=== PATIENT | female | born 1955 | race Caucasian/White ===

== ENCOUNTER 2017-03-05 10:14 | Emergency (ER) | payer OTHER ==
[~2017-03-05] VITALS: Ht 167.6 cm; Wt 86.2 kg
[2017-03-05 10:23] VITALS: BP 144/96; PULSE 94; RESP 18; TEMP 98.5; O2SAT 95
[2017-03-05] MEDS ORDERED: ASPI81CH CHEW (10:47)
[2017-03-05] MEDS ORDERED: METF500T PO (10:47)
[2017-03-05] MEDS ORDERED: CHOL1TAB42 PO (10:47)
[2017-03-05] MEDS ORDERED: LEVO50TA4 PO (10:47)
--- NOTE | 2017-03-05 10:57 | PD ---
HPI Chief Complaint: Abdominal Pain Time Seen by Provider: 10:46 Travel History International Travel<30 days: No Contact w/Intl Traveler<30days: No Traveled to known affect area: No History of Present Illness HPI This 61-year-old female is complaining of epigastric pain. Says the pain started on [place]. The pain started after sneezing. The pain is worse when she stands. His been no vomiting or diarrhea. It seems to be worse with eating. She has had a cholecystectomy in the past. The time that she had that done and she was told she had a hiatal hernia. She did have endoscopy done couple of years ago and was told she had a narrow esophagus. She takes metformin for diabetes. PFSH Past Medical History Diabetes: Yes Patient Takes Glucophage: Yes Gastrointestinal Disorders: Yes (FATTY LIVER) Hiatal Hernia: Yes Hypertension: Yes Influenza Vaccination: No ?: Not Past Surgical History Section: Yes Cholecystectomy: Yes Other Surgery: Yes (THYROIDECTOMY) Social History Alcohol Use: No Tobacco Use: No Substance Use: No Allergies-Medications (Allergen,Severity, Reaction): Coded Allergies: Erythromycin (Verified Adverse Reaction, Intermediate, GI UPSET, 03/05/17) Reported Meds & Prescriptions Reported Meds & Active Scripts Active Reported Vitamin D-3 (Cholecalciferol) 2,000 Unit Tab 1 Tab PO DAILY Levothyroxine (Levothyroxine Sodium) 50 Mcg Tab 50 Mcg PO DAILY Metformin (Metformin HCl) 500 Mg Tab 1,000 Mg PO BIDPC With meals Aspirin 81 Mg Chew 81 Mg CHEW DAILY Review of Systems General / Constitutional: No: Fever, Chills Eyes: No: Diploplia, Blurred Vision HENT: No: Headaches, Vertigo Cardiovascular: No: Chest Pain or Discomfort, Palpitations Respiratory: No: Cough, Shortness of Breath Gastrointestinal: Positive: Abdominal Pain, No: Vomiting, Diarrhea Genitourinary: No: Urgency, Frequency Physical Exam Narrative GENERAL: Well-developed female SKIN: Focused skin assessment warm/dry. HEAD: Atraumatic. Normocephalic. EYES: Pupils equal and round. No scleral icterus. No injection or drainage. ENT: No nasal bleeding or discharge. Mucous membranes pink and moist. NECK: Trachea midline. No JVD. CARDIOVASCULAR: Regular rate and rhythm. No murmur appreciated. RESPIRATORY: No accessory muscle use. Clear to auscultation. Breath sounds equal bilaterally. GASTROINTESTINAL: Abdomen soft, there is epigastric tenderness. There is a large right upper quadrant scar from cholecystectomy. When she coughs there is some bulging epigastric area. She says the pain is worse on standing. I did stand the patient when she stands it seems to be a slight bulge. MUSCULOSKELETAL: No obvious deformities. No clubbing. No cyanosis. No edema. NEUROLOGICAL: Awake and alert. No obvious cranial nerve deficits. Motor grossly within normal limits. Normal speech. PSYCHIATRIC: Appropriate mood and affect; insight and judgment normal. Data Data Last Documented VS Vital Signs Date Time Temp Pulse Resp B/P Pulse Ox O2 Delivery O2 Flow Rate FiO2 03/05/17 12:20 79 16 148/68 97 Room Air 03/05/17 10:23 98.5 Orders Electrocardiogram (03/05/17 10:52) Complete Blood Count With Diff (03/05/17 10:52) Comprehensive Metabolic Panel (03/05/17 10:52) Lipase (03/05/17 10:52) Al-Mag Hy-Si 40-40-4 Mg/Ml Liq (Mag-Al P (03/05/17 11:00) Lidocaine 2% Viscous (Xylocaine 2% Visco (03/05/17 11:00) Labs Laboratory Tests Test 03/05/17 11:00 White Blood Count 11.1 TH/MM3 Red Blood Count 4.45 MIL/MM3 Hemoglobin 12.5 GM/DL Hematocrit 37.7 % Mean Corpuscular Volume 84.8 FL Mean Corpuscular Hemoglobin 28.1 PG Mean Corpuscular Hemoglobin 33.2 % Concent Red Cell Distribution Width 11.9 % Platelet Count 221 TH/MM3 Mean Platelet Volume 7.3 FL Neutrophils (%) (Auto) 72.9 % Lymphocytes (%) (Auto) 17.5 % Monocytes (%) (Auto) 7.5 % Eosinophils (%) (Auto) 1.6 % Basophils (%) (Auto) 0.5 % Neutrophils # (Auto) 8.0 TH/MM3 Lymphocytes # (Auto) 2.0 TH/MM3 Monocytes # (Auto) 0.8 TH/MM3 Eosinophils # (Auto) 0.2 TH/MM3 Basophils # (Auto) 0.1 TH/MM3 CBC Comment DIFF FINAL Differential Comment Sodium Level 140 MEQ/L Potassium Level 3.9 MEQ/L Chloride Level 102 MEQ/L Carbon Dioxide Level 31.4 MEQ/L Anion Gap 7 MEQ/L Blood Urea Nitrogen 12 MG/DL Creatinine 0.89 MG/DL Estimat Glomerular Filtration 64 ML/MIN Rate Random Glucose 133 MG/DL Calcium Level 9.3 MG/DL Total Bilirubin 1.2 MG/DL Aspartate Amino Transf 27 U/L (AST/SGOT) Alanine Aminotransferase 29 U/L (ALT/SGPT) Alkaline Phosphatase 99 U/L Total Protein 8.7 GM/DL Albumin 3.7 GM/DL Lipase 139 U/L [facility] Medical Decision Making Medical Screen Exam Complete: Yes Emergency Medical Condition: Yes Medical Record Reviewed: Yes Differential Diagnosis Differential includes gastritis, ventral hernia, muscular tear Narrative Course Ascites pain is worse with standing and I am suspicious that she may have torn some muscles in the anterior abdominal wall and may even be developing a ventral hernia. There is no bulge palpable when she lays and I don't think this would be visible on CT scanning. She'll be released but I recommended to her that she follow up with surgery pain persists. Diagnosis Primary Impression: Abdominal muscle pain Additional Impression: possible ventral herniA Additional Instructions: Follow-up with general surgeon if pain persists Disposition: 01 DISCHARGE HOME Condition: Stable Iggy Sunshine MD Mar 05, 2017 10:57
[2017-03-05] MEDS ORDERED: LIDOCAINE VISCOUS 2% SOLN 15 ML UDC PO ONE (11:00)
[2017-03-05] MEDS ORDERED: ALUMINUM/MAGNESIUM/SIMETH 30 ML CUP PO ONE (11:00)
[2017-03-05 11:10] LABS: BASOPHIL # 0.1 TH/MM3 (0-0.2); BASOPHIL % 0.5 % (0.0-2.0); EOSINOPHIL # 0.2 TH/MM3 (0-0.4); EOSINOPHIL % 1.6 % (0.0-4.0); HEMATOCRIT 37.7 % (35.0-46.0); HEMO FLAGS DIFF FINAL; LYMPH % 17.5 % (9.0-44.0); MEAN CELL VOLUME 84.8 FL (80.0-100.0); MEAN CORPUSCULAR HEMOGLOBIN 28.1 PG (27.0-34.0); MEAN CORPUSCULAR HGB CONC 33.2 % (32.0-36.0); MONO % 7.5 % (0.0-8.0); NEUT % 72.9 % (16.0-70.0); PLATELET COUNT 221 TH/MM3 (150-450); RED BLOOD COUNT 4.45 MIL/MM3 (4.00-5.30); RED CELL DISTRIBUTION WIDTH 11.9 % (11.6-17.2); WHITE BLOOD COUNT 11.1 TH/MM3 (4.0-11.0)
[2017-03-05 11:20] LABS: CHLORIDE 102 MEQ/L (98-107); POTASSIUM 3.9 MEQ/L (3.5-5.1); SODIUM (NA) 140 MEQ/L (136-145)
[2017-03-05 11:23] LABS: ANION GAP 7 MEQ/L (5-15); BICARBONATE 31.4 MEQ/L (21.0-32.0); BLOOD UREA NITROGEN 12 MG/DL (7-18)
[2017-03-05 11:26] LABS: ALT (GPT) 29 U/L (10-53); AST (GOT) 27 U/L (15-37); GLOMERULAR FILTRATION RATE 64 ML/MIN (>89)
[2017-03-05 11:28] LABS: TOTAL BILIRUBIN ADULT 1.2 MG/DL (0.2-1.0)
[2017-03-05 11:29] LABS: ALKALINE PHOSPHATASE 99 U/L (45-117)
[2017-03-05 12:20] VITALS: BP 148/68; PULSE 79; RESP 16; O2SAT 97
[2017-03-05 13:05] VITALS: BP 143/70
--- NOTE | 2017-03-06 19:26 | EKG ---
Date Performed: 03/05/2017 Time Performed: 11:03:54 PTAGE: 61 years EKG: Sinus rhythm MINIMAL VOLTAGE CRITERIA FOR LVH, CONSIDER NORMAL VARIANT NONSPECIFIC T-WAVE ABNORMALITY BORDERLINE ECG NO PREVIOUS TRACING DOCTOR: Karson Rodriguez Interpretating Date/Time 03/06/2017 19:23:27
== END 2017-03-05 13:09 | disposition home or self-care (01) ==
LOC: PHED 10:14
DX: M79.1 Myalgia (principal); R94.31 Abnormal electrocardiogram [ECG] [EKG]; E11.9 Type 2 diabetes mellitus without complications; I10 Essential (primary) hypertension; Z79.84 Long term (current) use of oral hypoglycemic drugs; Z87.19 Personal history of other diseases of the digestive system
CPT/HCPCS: 80053; 83690; 85025; 93005; 99284